=== PATIENT | female | born 1975 | race Caucasian/White ===

== ENCOUNTER → 2024-08-18 09:02 | Outpatient (REF) | payer OTHER, SELFPAY | LOC: RAD 09:02 | PROVIDERS: ATTENDING PHYSICIAN Student in an Organized Health Care Education/Training Program | DX: D89.2 Hypergammaglobulinemia, unspecified (principal); E08.69 Diabetes mellitus due to underlying condition with other specified complication; E53.8 Deficiency of other specified B group vitamins; G60.9 Hereditary and idiopathic neuropathy, unspecified; K21.00 Gastro-esophageal reflux disease with esophagitis, without bleeding; L60.8 Other nail disorders; L73.2 Hidradenitis suppurativa; L94.3 Sclerodactyly; M06.00 Rheumatoid arthritis without rheumatoid factor, unspecified site; M17.0 Bilateral primary osteoarthritis of knee; M25.60 Stiffness of unspecified joint, not elsewhere classified; R06.09 Other forms of dyspnea; R23.8 Other skin changes; R63.4 Abnormal weight loss; R76.8 Other specified abnormal immunological findings in serum; Z51.81 Encounter for therapeutic drug level monitoring; Z79.899 Other long term (current) drug therapy | CPT/HCPCS: 71046; 73130 ==

== ENCOUNTER → 2024-09-16 11:18 | Outpatient (REF) | payer OTHER, SELFPAY | LOC: WDC 11:18 | PROVIDERS: ATTENDING PHYSICIAN Family Medicine | DX: Z12.31 Encounter for screening mammogram for malignant neoplasm of breast (principal) | CPT/HCPCS: 77063; 77067 ==

== ENCOUNTER → 2024-10-03 09:23 | Outpatient (REF) | payer OTHER, SELFPAY | LOC: PAVMRI 09:23 | PROVIDERS: ATTENDING PHYSICIAN Student in an Organized Health Care Education/Training Program; FAMILY PHYSICIAN Family Medicine | DX: D89.2 Hypergammaglobulinemia, unspecified (principal); E08.69 Diabetes mellitus due to underlying condition with other specified complication; E53.8 Deficiency of other specified B group vitamins; G60.9 Hereditary and idiopathic neuropathy, unspecified; L73.2 Hidradenitis suppurativa; M06.00 Rheumatoid arthritis without rheumatoid factor, unspecified site; M17.0 Bilateral primary osteoarthritis of knee; K21.00 Gastro-esophageal reflux disease with esophagitis, without bleeding; L60.8 Other nail disorders; L94.3 Sclerodactyly; M25.40 Effusion, unspecified joint; M25.60 Stiffness of unspecified joint, not elsewhere classified; R06.09 Other forms of dyspnea; R23.8 Other skin changes; R63.4 Abnormal weight loss; R76.8 Other specified abnormal immunological findings in serum; Z51.81 Encounter for therapeutic drug level monitoring; Z79.899 Other long term (current) drug therapy | CPT/HCPCS: 73220; A9575 ==

== ENCOUNTER 2024-12-19 20:56 | Emergency (ER) | payer OTHER, SELFPAY ==
[2024-12-19 21:00] VITALS: BP 136/83
[2024-12-19] MEDS: TYLENOL 1000 MG PO (21:33)
[2024-12-19 21:38] LABS: Urine Character Clear (Clear)
[2024-12-19 21:40] LABS: Hematocrit 36.2 % (37.0-47.0); Hemoglobin 12.4 g/dL (12.0-16.0); Mean Corp Hgb Conc. 34.3 g/dL (33.0-37.0); Mean Corpuscular Volume 91.0 fL (81.0-99.0); Nucleated Red Blood Cells % 0 %; Platelet Count 238 10^3/uL (130-400); Red Cell Dist. Width 12.5 % (11.5-14.5)
[2024-12-19 21:56] LABS: ALT (SGPT) 35 U/L (0-35); AST (SGOT) 47 U/L (14-36); Albumin 4.5 g/dl (3.5-5.0); Alkaline Phosphatase 76 U/L (38-126); Blood Urea Nitrogen 12 mg/dl (7-17); Calcium 9.2 mg/dl (8.4-10.2); Carbon Dioxide 25 mmol/L (22-30); Chloride 103 mmol/L (98-107); Glucose 110 mg/dl (70-99); Potassium 4.1 mmol/L (3.5-5.1); Sodium 135 mmol/L (135-145); Total Protein 7.3 g/dl (6.3-8.2); eGFR > 60.00
[2024-12-19 21:59] LABS: Urine Squamous Cell >30 /LPF (Few)
[2024-12-19 22:01] LABS: Urine Red Blood Cell 26-30 /HPF (0-2)
[2024-12-19 23:46] VITALS: BP 119/74
[2024-12-20] VITALS: BP 113/75
[2024-12-20 01:00] VITALS: BP 100/72
--- NOTE | 2024-12-20 01:10 | ED.GENMED ---
History of Present Illness
General
Chief Complaint: Fever
Source: patient and spouse
Exam Limitations: none
Time Seen by Provider: 12/19/24 23:42
Nursing documentation reviewed up to this point in time: agreed with
History of Present Illness
History of Present Illness:
49-year-old female presents emerged from complaining of fever, a rash on her left lower abdomen. She was started on Bactrim by her primary care doctor today. She complains of nausea and abdominal pain from the Bactrim.
Past History
Past History
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 )
ED Past Surgical History: and Other (liver repair)
Social History
Tobacco: Non-smoker
Alcohol: None
Drug: None
Personal:
Living: with family
Family History
Family History: Other (Has a father recent diverticulitis and a colon perforation)
Review of Systems
Review of Systems
Allergies reviewed?: Yes
All Other Systems: Not applicable
Constitutional: Reports fever
EENT: Reports no symptoms
Respiratory: Reports no symptoms
Cardiac: Reports no symptoms
ABD/GI: Reports nausea
: Reports no symptoms
Musculoskeletal: Reports no symptoms
Skin: Reports rash
Neurological: Reports no symptoms
Endocrine: Reports no symptoms
Hematologic/Lymphatic: Reports no symptoms
Psychiatric: Reports no symptoms
Phy Exam
Physical Exam
Physical Exam:
Physical Exam
General: no apparent distress, not acutely ill
Neck: supple. no meningeal signs. normal posterior pharynx
Heart: s1/s2 regular rate and rhythm, no murmur. equal radial
pulses.
HEENT: Pupils equal round reactive to light, EOMI
Lungs: no acute respiratory distress. clear bilaterally
Abdomen: normal bowel sounds. not tender. no CVAT
Neuro: alert and oriented. no focal neurological deficits cranial nerves II through XII intact
Skin: erythema, LLQ, with blisters
Psychiatric: well kept. interactive and cooperative
Extremities: no edema. no calf tenderness. negative homans. good distal pulses
Sepsis
Sepsis Screening
Sepsis Assessment: Sepsis Ruled Out
Sepsis Screen
Sepsis Screen: Sepsis Ruled Out
Date: 12/20/24
Time: 01:40
Course
Orders/Labs/Results
Orders:
Orders
12/19/24 21:10
Electrocardiogram (*1) Urgent
Reason for Study: Other
Other Reason for Exam: Possible Sepsis
Cardiac Monitoring- Treatment ONCE
EKG- Treatment ONCE
IV Insert/Care/Rem.- Treatment PRN
O2 Therapy [RESP] Urgent
Titrate/Wean O2 to maintain O2 sat greater than (%): 93
Special Instructions: TO MAINTAIN CONTINUOUS O2 SATS > OR = 93%
Pulse Ox/cont/shift [RESP] Urgent
Quantity: 1
Special Instructions: CONTINUOUS
12/19/24 21:25
Complete Blood Count/With Diff Urgent
Comprehensive Metabolic Panel Urgent
Lactic Acid Q4H
Comment: ON ICE, CANCEL 2ND ORDER IF FIRST LACTIC ACID LEVEL <2
Urinalysis Reflex To Culture Urgent
Date Specimen was Collected: 12/19/24
Time Specimen was Collected: 21:10
Urine Microscopic Reflex Cult Urgent
Blood Culture Q20M
[facility] Source: Blood/Venous
Specimen Description:
Comment: Urgent from separate sites. If patient screens positive for possible sepsis
Urine Culture Urgent
[facility] Source: U
Specimen Description:
Date Specimen was Collected: 12/19/24
Time Specimen was Collected: 21:10
12/19/24 21:30
Acetaminophen [Tylenol] 1,000 mg .ROUTE .STK-MED ONE
12/19/24 21:33
Acetaminophen [Tylenol] 1,000 mg PO NOW STA
12/19/24 21:35
Blood Culture Q20M
[facility] Source: Blood/Venous
Specimen Description:
Comment: Urgent from separate sites. If patient screens positive for possible sepsis
12/20/24 01:26
Cephalexin Monohydrate [Keflex] 500 mg PO NOW STA
Valacyclovir HCl [Valtrex] 1,000 mg PO STAT STA
Abnormal Lab Results
12/19/24
21:25
RBC 3.98 L 10^6/uL
(4.20-5.40)
Hct 36.2 L %
(37.0-47.0)
MCH 31.2 H pg
(27.0-31.0)
Absolute Lymphs (auto) 0.8 L 10^3/uL
(1.2-3.4)
Neutrophils % 77.8 H %
(42.2-75.2)
Lymphocytes % 12.5 L %
(20.5-51.1)
Glucose 110 H mg/dl
(70-99)
AST 47 H U/L
(14-36)
Ur Occult Blood Reflex 4+ A
(Negative)
Urine Urobilinogen 2+ A
(Neg - 1+)
Leukocyte Esterase Rfl 1+ A
(Negative)
Urine RBC 26-30 A /HPF
(0-2)
Urine Bacteria (Reflex) Moderate A
(Negative)
Urine Albumin (Reflex) 1+ A
(Neg - Trace)
12/19/24 21:25
12/19/24 21:25
Vital Signs
Initial and Last Documented VS:
Initial Vital Signs
Temp Pulse Resp BP Pulse Ox
102.1 F H 106 20 136/83 98
12/19/24 21:00 12/19/24 21:00 12/19/24 21:00 12/19/24 21:00 12/19/24 21:00
Last Documented Vital Signs
Temp Pulse Resp BP Pulse Ox
98.7 F 72 16 100/72 98
12/19/24 23:47 12/20/24 01:30 12/20/24 01:30 12/20/24 01:00 12/20/24 01:30
MDM/Problems Addressed
Differential Diagnosis Includes:
cellulitis, diverticultis
MDM/Problems Addressed:
49 yo female with abdominal cellulitis, possible shingles. Treat with keflex and valtrex. F/u with primary care.
*Pulse Oximetry
SaO2: 98
Oxygen Mode of Delivery: Room air
Patient hypoxic: no
*EKG
Interpreted by ED Provider?: Yes
EKG Intrepretation Date: 12/20/24
EKG Intrepretation Time: 21:36
Interpretation: abnormal
Comparison EKG: no comparison EKG present
Heart Rate: 92
Rate: normal
Rhythm: sinus
[place]: normal axis
Interval: normal interval
QRS Pattern: right bundle branch block
Ischemia: no ischemia
*Top Cleaner Interpretation
Rate: normal
Interpretation: normal
Heart Rate: 88
Rhythm: sinus
*Critical Care Note
Total Time (30-74mins, 75-104mins- exclusive of procedures): Not Applicable
Patient Management
Social determinants of health affecting care: Living situation and Strong social support
Escalation/DeEscalation of care consider admission/obs:
admit not indicated
ED Attending Note
-
Portions of this chart may have been created with voice recognition software.� Occasional wrong word or��sound alike� substitutions may have occurred due to the inherent limitations of voice recognition software.
Discharge Plan
Departure
Patient Disposition: Home (Routine Discharge)
Date of Disposition: 12/20/24
Time of Disposition: 01:18
Patient with high blood pressure during this ER visit?: No
Condition: Good
Discharge Problem:
Abdominal wall cellulitis
Instructions: Shingles, Cellulitis (skin infection) in adults - ED discharge instructions
Prescriptions:
New
valacyclovir [Valtrex] 1 gram tablet
1,000 mg PO TID 7 Days Qty: 21 0RF
cephalexin 500 mg capsule
500 mg PO BID 7 Days Qty: 14 0RF
No Action
levothyroxine [Synthroid] 25 MCG tablet
25 mcg PO DAILY
vit-iron fum-folic ac 1 EACH tablet
1 mg PO DAILY
oxycodone-acetaminophen 5 MG/325 MG tablet
1 tab PO Q3HPRN PRN (Reason: moderate pain) Qty: 20 0RF
ibuprofen 600 MG tablet
600 mg PO Q4HPRN PRN (Reason: moderate pain/cramps) Qty: 30 0RF
simethicone [Gas Relief 80 (simethicone)] 80 MG tablet,chewable
80 mg PO TIDPRN PRN (Reason: flatulence) Qty: 0 0RF
metronidazole 500 MG tablet
500 mg PO TID Qty: 21 0RF
levofloxacin 500 MG tablet
500 mg PO DAILY Qty: 7 0RF
Activity Restrictions/Additional Instructions:
Follow up with primary care in 3-5 days. Return for any concerns.
Interventions
Interventions:
*Risk Screen - Suicide Last Done: 12/19/24 21:00
*General Assessment Last Done: 12/19/24 21:00
*Neglect/Abuse Screening Last Done: 12/19/24 21:00
*ED- Fall Risk Assessment Last Done: 12/19/24 21:00
*ED COVID-19 Vaccine History Last Done: 12/19/24 21:00
ED- Neurological Assessment Last Done: 12/19/24 23:30
ED-Skin Assessment Last Done: 12/19/24 23:30
Discharge Date and Time
Print Language: [place]
[2024-12-20] MEDS: VALTREX 1000 MG PO (01:39)
[2024-12-20] MEDS: KEFLEX 500 MG PO (01:39)
== END 2024-12-20 01:43 | disposition home or self-care (01) ==
LOC: EMR 20:56
PROVIDERS: EMERGENCY PHYSICIAN Emergency Medicine
DX: L03.311 Cellulitis of abdominal wall (principal); I45.10 Unspecified right bundle-branch block
CPT/HCPCS: 99284; 80053; 81003; 81015; 83605; 85025; 87040; 87086; 93005

== ENCOUNTER 2025-04-10 06:28 | Day surgery (SDC) | payer OTHER, SELFPAY | END 2025-04-10 09:44 | disposition home or self-care (01) | LOC: GI 06:28 | PROVIDERS: ATTENDING PHYSICIAN Internal Medicine | DX: K29.50 Unspecified chronic gastritis without bleeding (principal); K44.9 Diaphragmatic hernia without obstruction or gangrene; R13.10 Dysphagia, unspecified | CPT/HCPCS: 43238; 88305; 88342 ==

== ENCOUNTER → 2025-05-29 14:20 | Outpatient (REF) | payer OTHER, SELFPAY ==
[2025-05-29 15:11] LABS: Urine Character Clear (Clear)
[2025-05-29 15:13] LABS: Hematocrit 35.3 % (37.0-47.0); Hemoglobin 11.6 g/dL (12.0-16.0); Mean Corp Hgb Conc. 32.9 g/dL (33.0-37.0); Mean Corpuscular Volume 97.0 fL (81.0-99.0); Nucleated Red Blood Cells % 0 %; Platelet Count 268 10^3/uL (130-400); Red Cell Dist. Width 13.5 % (11.5-14.5)
[2025-05-29 15:44] LABS: C-Reactive Protein < 5.00 mg/L (0.0-10.00)
[2025-05-29 15:48] LABS: Urine Squamous Cell 21-25 /LPF (Few)
[2025-05-29 15:50] LABS: Urine Red Blood Cell 0-2 /HPF (0-2)
[2025-05-29 15:54] LABS: ALT (SGPT) 20 U/L (0-35); AST (SGOT) 26 U/L (14-36); Albumin 4.6 g/dl (3.5-5.0); Alkaline Phosphatase 82 U/L (38-126); Blood Urea Nitrogen 18 mg/dl (7-17); Calcium 9.4 mg/dl (8.4-10.2); Carbon Dioxide 28 mmol/L (22-30); Chloride 102 mmol/L (98-107); Glucose 111 mg/dl (70-99); Potassium 3.7 mmol/L (3.5-5.1); Sodium 136 mmol/L (135-145); Total Protein 7.4 g/dl (6.3-8.2); eGFR > 60.00
== END ==
LOC: REG 14:20
PROVIDERS: ATTENDING PHYSICIAN Student in an Organized Health Care Education/Training Program; FAMILY PHYSICIAN Family Medicine
DX: D89.2 Hypergammaglobulinemia, unspecified (principal); E08.69 Diabetes mellitus due to underlying condition with other specified complication; E53.8 Deficiency of other specified B group vitamins; G60.9 Hereditary and idiopathic neuropathy, unspecified; K21.00 Gastro-esophageal reflux disease with esophagitis, without bleeding; L60.8 Other nail disorders; L73.2 Hidradenitis suppurativa; L94.3 Sclerodactyly; M06.00 Rheumatoid arthritis without rheumatoid factor, unspecified site; M17.0 Bilateral primary osteoarthritis of knee; M25.40 Effusion, unspecified joint; M25.60 Stiffness of unspecified joint, not elsewhere classified; R06.09 Other forms of dyspnea; R23.8 Other skin changes; R63.4 Abnormal weight loss; R76.81 Abnormal rheumatoid factor and anti-citrullinated protein antibody without rheumatoid arthritis; Z51.81 Encounter for therapeutic drug level monitoring; Z79.899 Other long term (current) drug therapy
CPT/HCPCS: 36415; 80053; 81003; 81015; 82570; 84156; 85025; 85652; 86140; 86160; 86225